=== PATIENT | female | born 1995 | race Caucasian/White ===

== ENCOUNTER 2025-01-14 04:36 | Emergency (ER) | payer BC ==
[~2025-01-14] VITALS: Ht 162.6 cm; Wt 87.0 kg
[2025-01-14 04:42] VITALS: O2SAT 98
[2025-01-14 05:54] LABS: INFLUENZA TYPE A Presumptive Negative (Pres. Neg.)
[2025-01-14 05:55] LABS: INFLUENZA TYPE B Presumptive Negative (Pres. Neg.)
[2025-01-14 05:56] LABS: RESPIRATORY SYNCYTIAL VIRUS Not Detected (Not Detectd)
[2025-01-14 06:12] VITALS: BP 114/59; PULSE 67; RESP 16; TEMP 36.9; O2SAT 98
== END 2025-01-14 06:13 | disposition home or self-care (01) ==
LOC: ER 04:36
DX: B34.9 Viral infection, unspecified (principal); F41.9 Anxiety disorder, unspecified; Z88.1 Allergy status to other antibiotic agents; Z20.822 Contact with and (suspected) exposure to COVID-19
CPT/HCPCS: 87420; 87426; 87804; 99283

== ENCOUNTER 2025-02-12 16:54 | Emergency (ER) | payer MEDICAID ==
[~2025-02-12] VITALS: Ht 162.6 cm; Wt 87.0 kg
[2025-02-12 16:58] VITALS: O2SAT 99
[2025-02-12 18:10] LABS: BASOPHILS % 0.5 % (0.0-2.0); EOSINOPHILS % 0.7 % (0.0-5.0); HEMATOCRIT. 39.1 % (36.0-48.0); HEMOGLOBIN. 13.1 g/dL (12.0-16.0); LYMPHOCYTES % 25.6 % (20.0-50.0); MEAN PLATELET VOLUME 7.5 fl (7.4-10.4); MONOCYTES % 3.7 % (2.0-8.0); NEUTROPHILS % 69.5 % (40.0-76.0); PLATELET 440 x1000/uL (130-400); RED BLOOD CELL COUNT 4.67 mill/uL (4.2-5.4); RED CELL DISTRIBUTION WIDTH 13.8 % (11.6-14.6)
[2025-02-12 18:21] LABS: CREATININE 0.7 mg/dL (0.6-1.0); UREA NITROGEN BLOOD 8 mg/dL (9-23)
[2025-02-12 20:24] LABS: TROPONIN I HIGH SENSITIVITY < 4 ng/L (3.0-34)
[2025-02-12 20:35] VITALS: BP 114/71; PULSE 73; RESP 14; TEMP 36.8; O2SAT 100
[2025-02-12 21:24] LABS: HCG SCREEN NEGATIVE
== END 2025-02-12 20:37 | disposition home or self-care (01) ==
LOC: ER 16:54
DX: R00.2 Palpitations (principal); F41.9 Anxiety disorder, unspecified; Z88.1 Allergy status to other antibiotic agents
CPT/HCPCS: 36415; 71045; 80048; 84484; 84703; 85025; 93005; 99285